=== PATIENT | male | born 1980 | race Hispanic/Latino ===

== ENCOUNTER → 2022-03-06 | Day surgery (SDC) | payer OTHER ==
[2022-03-05 11:10] LABS: BASOPHILS % 0.6 % (0.0-1.0); EOSINOPHILS # (AUTO) 0.6 (0.0-0.4); EOSINOPHILS % 9.1 % (0.0-6.0); HEMATOCRIT 39.8 % (38.2-49.6); HEMOGLOBIN 12.7 g/dL (14.0-18.0); LYMPHOCYTES # (AUTO) 2.7 (1.0-3.2); LYMPHOCYTES % 38.5 % (18.0-39.1); MEAN CORPUSCULAR HGB CONC 31.9 g/dL (31-35); MEAN CORPUSCULAR VOLUME 90.9 fL (81-99); MONOCYTES # (AUTO) 0.6 (0.2-0.8); MONOCYTES % 8.7 % (4.4-11.3); NEUTROPHILS % 43.1 % (38.7-80.0); PLATELET COUNT 194 x10e3/uL (140-360); RED BLOOD COUNT 4.38 x10e6/uL (4.3-5.7); RED CELL DISTRIBUTION WIDTH 11.8 % (11.7-14.4)
[~2022-03-06] MED LIST: ASCORBIC ACID500 MG PO; ASPIRIN81 MG PO; ATORVASTATIN CA20 MG PO; B&O 60MG R/S 60 MG SUPP PR ONE; DEXAMETHASONE SOD PHOS INJ 4 MG/ML SDV ONE; FLOMAX0.4 MG PO; FLUOXETINE HCL20 MG PO; IOHEXOL 300 MG/ML 30ML INFUS..BTL ONE; LAXATIVE PEG 3510 GM PO; LEVALBUTER0.63 MG/3 NEB; LEVOTHYROXINE50 MCG PO; LIDOCAINE HCL 2% LOCAL INJ 5 ML SDV VIAL INJ ONE; METOCLOPRAM5 MG/5 ML PO; NAPROXEN250 MG PO; ONDANSETRON HCL INJ 2MG/ML 2ML 2 MG/ML VIAL ONE; POVIDONE IODINE 0.05% 0.05 % ML PO ONE; PROBIOTIC & AC1 EACH PO; PROPOFOL IV EMULSION 10 MG/ML 20 ML VIAL ONE; SEVOFLURANE INHAL SOLN 250 ML PEN BTL ONE; SODIUM CHLORIDE 0.9% 50ML 50 ML ONE; SUMATRIPTAN SUC25 MG PO; TANDEM PLUS CA1 EACH PO; ULTRAM50 MG PO; VITAMIN D3250 MC1 PO; ZINC50 M3 PO
[2022-03-06 11:05] VITALS: BP 110/78
== END | disposition home or self-care (01) ==
LOC: OR 08:19
PROVIDERS: ATTEND Urology
DX: N21.0 Calculus in bladder (principal); N20.0 Calculus of kidney; N13.30 Unspecified hydronephrosis; Z46.6 Encounter for fitting and adjustment of urinary device; I69.354 Hemiplegia and hemiparesis following cerebral infarction affecting left non-dominant side; Z01.810 Encounter for preprocedural cardiovascular examination; Z01.812 Encounter for preprocedural laboratory examination; Z20.822 Contact with and (suspected) exposure to COVID-19; Z79.82 Long term (current) use of aspirin; Z79.899 Other long term (current) drug therapy; Z86.16 Personal history of COVID-19; Z87.01 Personal history of pneumonia (recurrent)
CPT/HCPCS: 36415; 52318; 52332; 74420; 85025; 87086; 88300; 93005; C1758; C2617; J0690; J1100; J2001; J2405; J2704; Q9967; U0002

== ENCOUNTER → 2022-04-29 | Day surgery (SDC) | payer OTHER ==
[~2022-04-29] MED LIST changes: +BUDESONIDE0.5 MG/2 M NEB; +EPHEDRINE SULFATE INJ 50 MG/ML VIAL ONE; +FENTANYL CITRATE/PF 100MCG/2 ML INJ ONE; -IOHEXOL 300 MG/ML 30ML INFUS..BTL ONE; +IOPAMIDOL 610MG/1ML 300 MG/ML VIAL IV ONE; +MIDAZOLAM HCL 2 MG/2 ML VIAL ONE; +PREDNISONE20 MG PO; -SODIUM CHLORIDE 0.9% 50ML 50 ML ONE
[2022-04-29 12:20] VITALS: BP 111/72
== END | disposition home or self-care (01) ==
LOC: OR 08:26
PROVIDERS: ATTEND Urology
DX: N20.0 Calculus of kidney (principal); N13.30 Unspecified hydronephrosis; N21.0 Calculus in bladder; E03.9 Hypothyroidism, unspecified; I69.354 Hemiplegia and hemiparesis following cerebral infarction affecting left non-dominant side; J45.909 Unspecified asthma, uncomplicated; F32.A Depression, unspecified; Z46.6 Encounter for fitting and adjustment of urinary device; Z01.812 Encounter for preprocedural laboratory examination; Z20.822 Contact with and (suspected) exposure to COVID-19; Z79.82 Long term (current) use of aspirin; Z79.899 Other long term (current) drug therapy; Z86.16 Personal history of COVID-19; Z87.01 Personal history of pneumonia (recurrent); Z86.2 Personal history of diseases of the blood and blood-forming organs and certain disorders involving the immune mechanism
CPT/HCPCS: 52317; 52356; 74420; 88300; C1758 ×2; C2617; J0690; J1100; J2001; J2250; J2405; J2704; J3010; Q9967; U0002

== ENCOUNTER 2022-04-30 14:36 | Inpatient (IN) | payer OTHER ==
[~2022-04-30] VITALS: Ht 167.6 cm; Wt 58.7 kg
[2022-04-30] VITALS (17 sets, daily range): BP systolic 77–100; BP diastolic 54–83
[~2022-04-30 14:36] MED LIST changes: -B&O 60MG R/S 60 MG SUPP PR ONE; -DEXAMETHASONE SOD PHOS INJ 4 MG/ML SDV ONE; -EPHEDRINE SULFATE INJ 50 MG/ML VIAL ONE; -FENTANYL CITRATE/PF 100MCG/2 ML INJ ONE; -IOPAMIDOL 610MG/1ML 300 MG/ML VIAL IV ONE; -LIDOCAINE HCL 2% LOCAL INJ 5 ML SDV VIAL INJ ONE; -MIDAZOLAM HCL 2 MG/2 ML VIAL ONE; -ONDANSETRON HCL INJ 2MG/ML 2ML 2 MG/ML VIAL ONE; -POVIDONE IODINE 0.05% 0.05 % ML PO ONE; -PROPOFOL IV EMULSION 10 MG/ML 20 ML VIAL ONE; -SEVOFLURANE INHAL SOLN 250 ML PEN BTL ONE
[2022-04-30] MEDS ORDERED: ONDANSETRON HCL INJ 2MG/ML 2ML 2 MG/ML VIAL IV STA (14:58)
[2022-04-30] MEDS ORDERED: SODIUM CHLORIDE 0.9% 1000ML 1,000 ML IV SCH ×2 (15:00→16:30)
[2022-04-30] MEDS ORDERED: Vancomycin IV 1 GM in SODIUM CHLORIDE 0.9% 250ML 250 ML IV STA (15:11)
[2022-04-30 15:31] LABS: BASOPHILS % 0.2 % (0.0-1.0); EOSINOPHILS # (AUTO) 0.4 (0.0-0.4); EOSINOPHILS % 1.9 % (0.0-6.0); HEMATOCRIT 34.7 % (38.2-49.6); HEMOGLOBIN 10.7 g/dL (14.0-18.0); LYMPHOCYTES # (AUTO) 1.2 (1.0-3.2); LYMPHOCYTES % 6.7 % (18.0-39.1); MEAN CORPUSCULAR HEMOGLOBIN 28.6 pg (28-32); MEAN CORPUSCULAR HGB CONC 30.8 g/dL (31-35); MEAN CORPUSCULAR VOLUME 92.8 fL (81-99); MONOCYTES # (AUTO) 1.5 (0.2-0.8); MONOCYTES % 8.2 % (4.4-11.3); NEUTROPHILS # (AUTO) 15.2 (2.1-6.9); NEUTROPHILS % 82.7 % (38.7-80.0); PLATELET COUNT 312 x10e3/uL (140-360); RED BLOOD COUNT 3.74 x10e6/uL (4.3-5.7); RED CELL DISTRIBUTION WIDTH 13.6 % (11.7-14.4)
[2022-04-30 15:48] LABS: ALBUMIN 3.5 g/dL (3.5-5.0); ALBUMIN/GLOBULIN RATIO 0.9 (0.8-2.0); ANION GAP 16.2 mmol/L (8-16); CALCIUM 9.4 mg/dL (8.4-10.2); CREATININE, SERUM 0.71 mg/dL (0.72-1.25); POTASSIUM 4.2 mmol/L (3.5-5.1)
[2022-04-30] MEDS ORDERED: SODIUM CHLORIDE 0.9% 1000ML 1,000 ML IV STA (16:17)
[2022-04-30] MEDS ORDERED: Morphine 2mg Syringe 2 MG/ML SYR IV PRN (16:30)
[2022-04-30 17:08] LABS: CLARITY,URINE TURBID (CLEAR); COLOR,URINE RED (YELLOW); KETONES,URINE NEGATIVE (NEGATIVE); LEUKOCYTE ESTERASE ,URINE SMALL (NEGATIVE); NITRITE,URINE NEGATIVE (NEGATIVE); PROTEIN,URINE DIPSTICK >=300 (NEGATIVE); URINE UROBILINOGEN 1 mg/dL (0.2 - 1)
[2022-04-30] MEDS ORDERED: LEVALBUTEROL HCL SOLN NEBU 0.63 MG/3 ML NEB IH PRN (17:15)
[2022-04-30 17:20] LABS: BACTERIA,URINE FEW /HPF; RBC,URINE >50 /HPF (0-5); WBC,URINE (MAN) 0-5 /HPF (0-5)
[2022-04-30 17:52] LABS: CREATINE KINASE MB 4.7 ng/mL (0-5.0)
[2022-04-30] MEDS: SODIUM CHLORIDE 0.9% 1000ML 1,000 ML IV SCH (18:37)
[2022-04-30] MEDS: ONDANSETRON HCL INJ 2MG/ML 2ML 2 MG/ML VIAL IV PRN (18:37)
[2022-04-30] MEDS: NOREPINEPHRINE 8 MG/D5W 250 ML 250 ML IV SCH (18:59)
[2022-04-30] MEDS ORDERED: MEROPENEM 1 GM in SODIUM CHLORIDE 0.9% 100 ML IV SCH (19:00)
[2022-04-30] MEDS ORDERED: DOCUSATE SODIUM 100 MG CAP PO PRN (20:30)
[2022-04-30] MEDS ORDERED: BENZONATATE 100 MG CAP PO PRN (20:30)
[2022-04-30] MEDS ORDERED: MELATONIN 5 MG TABLET PO PRN (20:30)
[2022-04-30] MEDS ORDERED: DIPHENHYDRAMINE HCL 25 MG CAP PO PRN (20:30)
[2022-04-30] MEDS ORDERED: POTASSIUM CHLORIDE 20 MEQ TAB CR PO PRN (20:30)
[2022-04-30] MEDS ORDERED: SIMETHICONE 80 MG CHEW PO PRN (20:30)
[2022-04-30] MEDS ORDERED: DEXTROSE 50% SYRINGE 50 ML IV PRN (20:30)
[2022-04-30] MEDS: MEROPENEM 1 GM in SODIUM CHLORIDE 0.9% 100 ML IV SCH (21:30)
[2022-05-01] VITALS (79 sets, daily range): BP systolic 81–113; BP diastolic 52–80
[2022-05-01] MEDS: SODIUM CHLORIDE 0.9% 1000ML 1,000 ML IV SCH ×3 (01:27→21:20)
[2022-05-01] MEDS: Vancomycin IV 1 GM in SODIUM CHLORIDE 0.9% 250ML 250 ML IV SCH ×2 (03:15→15:27)
[2022-05-01] MEDS: MEROPENEM 1 GM in SODIUM CHLORIDE 0.9% 100 ML IV SCH (05:36)
[2022-05-01] MEDS: LEVOTHYROXINE SODIUM 50 MCG TAB PO SCH (05:36)
[2022-05-01 06:01] LABS: BASOPHILS # (AUTO) 0.1 (0.0-0.1); BASOPHILS % 0.4 % (0.0-1.0); EOSINOPHILS # (AUTO) 0.6 (0.0-0.4); EOSINOPHILS % 2.4 % (0.0-6.0); HEMATOCRIT 33.7 % (38.2-49.6); HEMOGLOBIN 10.5 g/dL (14.0-18.0); LYMPHOCYTES # (AUTO) 0.8 (1.0-3.2); LYMPHOCYTES % 3.3 % (18.0-39.1); MEAN CORPUSCULAR HEMOGLOBIN 28.9 pg (28-32); MEAN CORPUSCULAR HGB CONC 31.2 g/dL (31-35); MEAN CORPUSCULAR VOLUME 92.8 fL (81-99); MONOCYTES # (AUTO) 2.1 (0.2-0.8); MONOCYTES % 8.6 % (4.4-11.3); NEUTROPHILS # (AUTO) 20.3 (2.1-6.9); NEUTROPHILS % 84.2 % (38.7-80.0); PLATELET COUNT 240 x10e3/uL (140-360); RED BLOOD COUNT 3.63 x10e6/uL (4.3-5.7); RED CELL DISTRIBUTION WIDTH 13.9 % (11.7-14.4)
[2022-05-01] MEDS: ACETAMINOPHEN 325 MG TAB PO PRN ×2 (06:04→19:26)
[2022-05-01 06:21] LABS: ANION GAP 11.7 mmol/L (8-16); CALCIUM 8.7 mg/dL (8.4-10.2); CREATININE, SERUM 0.69 mg/dL (0.72-1.25); MAGNESIUM 1.7 MG/DL (1.3-2.1); PHOSPHORUS 2.2 MG/DL (2.3-4.7); POTASSIUM 3.7 mmol/L (3.5-5.1)
[2022-05-01 07:24] LABS: CREATINE KINASE MB 1.7 ng/mL (0-5.0)
[2022-05-01] MEDS: PANTOPRAZOLE SOD 40 MG TABEC PO SCH (09:16)
[2022-05-01 09:25] LABS: BAND NEUTROPHILS % (MANUAL) 1 %; EOSINOPHILS % (MANUAL) 3 % (0-7); LYMPHOCYTES % (MANUAL) 6 % (19-48); MONOCYTES % (MANUAL) 7 % (3.4-9.0); NEUTROPHILS % (MANUAL) 83 % (40-74)
[2022-05-01 09:27] LABS: PLATELET ESTIMATE ADEQUATE; PLATELET MORPHOLOGY COMMENT NORMAL; RBC MORPHOLOGY COMMENT NORMAL
[2022-05-01] MEDS: PREDNISONE 20 MG TAB PO SCH (10:47)
[2022-05-01] MEDS: HEPARIN SOD (PORCINE) 5,000 UNIT/ML VIAL SC SCH ×2 (11:56→21:20)
[2022-05-01] MEDS ORDERED: MEROPENEM 500 MG VIAL ONE (14:08)
[2022-05-01 17:25] LABS: CREATINE KINASE MB 2.9 ng/mL (0-5.0)
[2022-05-01] MEDS: NOREPINEPHRINE 8 MG/D5W 250 ML 250 ML IV SCH (18:43)
[2022-05-02] VITALS (82 sets, daily range): BP systolic 89–111; BP diastolic 54–81
[2022-05-02] MEDS: SODIUM CHLORIDE 0.9% 1000ML 1,000 ML IV SCH ×3 (00:30→23:42)
[2022-05-02] MEDS: Vancomycin IV 1 GM in SODIUM CHLORIDE 0.9% 250ML 250 ML IV SCH ×2 (03:01→18:28)
[2022-05-02 05:04] LABS: BASOPHILS % 0.1 % (0.0-1.0); EOSINOPHILS # (AUTO) 1.6 (0.0-0.4); EOSINOPHILS % 11.6 % (0.0-6.0); HEMATOCRIT 29.1 % (38.2-49.6); LYMPHOCYTES # (AUTO) 0.8 (1.0-3.2); LYMPHOCYTES % 6.1 % (18.0-39.1); MEAN CORPUSCULAR HEMOGLOBIN 28.8 pg (28-32); MEAN CORPUSCULAR HGB CONC 30.9 g/dL (31-35); MEAN CORPUSCULAR VOLUME 93.3 fL (81-99); MONOCYTES # (AUTO) 1.4 (0.2-0.8); NEUTROPHILS # (AUTO) 9.9 (2.1-6.9); NEUTROPHILS % 71.7 % (38.7-80.0); PLATELET COUNT 181 x10e3/uL (140-360); RED BLOOD COUNT 3.12 x10e6/uL (4.3-5.7); RED CELL DISTRIBUTION WIDTH 14.1 % (11.7-14.4)
[2022-05-02] MEDS: LEVOTHYROXINE SODIUM 50 MCG TAB PO SCH (05:19)
[2022-05-02 05:23] LABS: ANION GAP 8.5 mmol/L (8-16); CALCIUM 8.6 mg/dL (8.4-10.2); CREATININE, SERUM 0.54 mg/dL (0.72-1.25); POTASSIUM 3.5 mmol/L (3.5-5.1)
[2022-05-02] MEDS: PANTOPRAZOLE SOD 40 MG TABEC PO SCH (08:40)
[2022-05-02] MEDS: PREDNISONE 20 MG TAB PO SCH (08:40)
[2022-05-02] MEDS: HEPARIN SOD (PORCINE) 5,000 UNIT/ML VIAL SC SCH ×2 (08:42→21:36)
[2022-05-02] MEDS: LIDOCAINE 4% PATCH TP PRN (12:00)
[2022-05-02] MEDS ORDERED: FLUCONAZOLE 200 MG/100 ML 100 ML IV SCH (14:00)
[2022-05-02] MEDS: LEVALBUTEROL HCL SOLN NEBU 1.25 MG/3 ML NEB INH SCH ×2 (14:50→19:30)
[2022-05-02] MEDS: NOREPINEPHRINE 8 MG/D5W 250 ML 250 ML IV SCH (19:00)
[2022-05-03] VITALS (25 sets, daily range): BP systolic 87–108; BP diastolic 59–85
[2022-05-03] MEDS: LEVALBUTEROL HCL SOLN NEBU 1.25 MG/3 ML NEB INH SCH ×4 (01:20→19:42)
[2022-05-03] MEDS: Vancomycin IV 1 GM in SODIUM CHLORIDE 0.9% 250ML 250 ML IV SCH ×2 (03:28→03:55)
[2022-05-03] MEDS: ONDANSETRON HCL INJ 2MG/ML 2ML 2 MG/ML VIAL IV PRN (05:08)
[2022-05-03] MEDS: LEVOTHYROXINE SODIUM 75 MCG TAB PO SCH (05:32)
[2022-05-03 05:52] LABS: BASOPHILS % 0.2 % (0.0-1.0); EOSINOPHILS # (AUTO) 1.1 (0.0-0.4); EOSINOPHILS % 9.7 % (0.0-6.0); HEMATOCRIT 28.7 % (38.2-49.6); HEMOGLOBIN 8.9 g/dL (14.0-18.0); LYMPHOCYTES # (AUTO) 1.2 (1.0-3.2); MEAN CORPUSCULAR HEMOGLOBIN 28.9 pg (28-32); MEAN CORPUSCULAR VOLUME 93.2 fL (81-99); MONOCYTES # (AUTO) 0.9 (0.2-0.8); MONOCYTES % 7.6 % (4.4-11.3); NEUTROPHILS # (AUTO) 8.3 (2.1-6.9); NEUTROPHILS % 72.1 % (38.7-80.0); PLATELET COUNT 200 x10e3/uL (140-360); RED BLOOD COUNT 3.08 x10e6/uL (4.3-5.7); RED CELL DISTRIBUTION WIDTH 13.8 % (11.7-14.4)
[2022-05-03] MEDS ORDERED: METOCLOPRAMIDE HCL 10 MG/2ML VIAL IV PRN (07:00)
[2022-05-03] MEDS: ALBUTEROL/IPRATROPIUM 3 ML NEB NEB PRN ×2 (07:30→13:30)
[2022-05-03 07:57] LABS: ANION GAP 12.2 mmol/L (8-16); CALCIUM 8.2 mg/dL (8.4-10.2); CREATININE, SERUM 0.58 mg/dL (0.72-1.25); POTASSIUM 3.2 mmol/L (3.5-5.1)
[2022-05-03] MEDS: HEPARIN SOD (PORCINE) 5,000 UNIT/ML VIAL SC SCH ×2 (08:30→21:43)
[2022-05-03] MEDS: PREDNISONE 20 MG TAB PO SCH (08:30)
[2022-05-03] MEDS: PANTOPRAZOLE SOD 40 MG TABEC PO SCH (08:30)
[2022-05-03] MEDS: ACETAMINOPHEN 325 MG TAB PO PRN (10:01)
[2022-05-03] MEDS: LIDOCAINE 4% PATCH TP PRN (10:01)
[2022-05-03 11:13] LABS: ABG HCO3 33 mmol/L (22-26); ABG PCO2 47 mmHg (35-45); ABG PH 7.46 (7.35-7.45); ABG PO2 126 mmHg (80-105); ABG TCO2 35
[2022-05-03] MEDS ORDERED: FLUOXETINE HCL 20 MG CAP PO ONE (13:30)
[2022-05-03] MEDS: SODIUM CHLORIDE 0.9% 1000ML 1,000 ML IV SCH (21:41)
[2022-05-04] VITALS (8 sets, daily range): BP systolic 96–104; BP diastolic 66–70
[2022-05-04] MEDS: LEVALBUTEROL HCL SOLN NEBU 1.25 MG/3 ML NEB INH SCH ×4 (00:50→19:15)
[2022-05-04] MEDS: Vancomycin IV 1 GM in SODIUM CHLORIDE 0.9% 250ML 250 ML IV SCH (03:00)
[2022-05-04] MEDS: LEVOTHYROXINE SODIUM 75 MCG TAB PO SCH (06:48)
[2022-05-04 06:56] LABS: BASOPHILS % 0.2 % (0.0-1.0); EOSINOPHILS # (AUTO) 1.3 (0.0-0.4); EOSINOPHILS % 13.9 % (0.0-6.0); HEMATOCRIT 29.8 % (38.2-49.6); HEMOGLOBIN 9.1 g/dL (14.0-18.0); LYMPHOCYTES # (AUTO) 1.2 (1.0-3.2); LYMPHOCYTES % 12.1 % (18.0-39.1); MEAN CORPUSCULAR HEMOGLOBIN 28.6 pg (28-32); MEAN CORPUSCULAR HGB CONC 30.5 g/dL (31-35); MEAN CORPUSCULAR VOLUME 93.7 fL (81-99); MONOCYTES # (AUTO) 1.2 (0.2-0.8); MONOCYTES % 12.3 % (4.4-11.3); NEUTROPHILS # (AUTO) 5.9 (2.1-6.9); NEUTROPHILS % 61.1 % (38.7-80.0); PLATELET COUNT 226 x10e3/uL (140-360); RED BLOOD COUNT 3.18 x10e6/uL (4.3-5.7)
[2022-05-04 07:10] LABS: ANION GAP 12.5 mmol/L (8-16); CALCIUM 8.6 mg/dL (8.4-10.2); CREATININE, SERUM 0.61 mg/dL (0.72-1.25); POTASSIUM 3.5 mmol/L (3.5-5.1)
[2022-05-04] MEDS ORDERED: FLUCONAZOLE 100 MG TAB PO SCH (09:00)
[2022-05-04] MEDS: PANTOPRAZOLE SOD 40 MG TABEC PO SCH (09:13)
[2022-05-04] MEDS: PREDNISONE 10 MG TAB PO SCH (09:14)
[2022-05-04] MEDS: FLUOXETINE HCL 20 MG CAP PO SCH (09:19)
[2022-05-04] MEDS: HEPARIN SOD (PORCINE) 5,000 UNIT/ML VIAL SC SCH ×2 (09:21→21:09)
[2022-05-04] MEDS ORDERED: ALBUTEROL/IPRATROPIUM 3 ML NEB NEB PRN (09:45)
[2022-05-04] MEDS ORDERED: MICAFUNGIN SODIUM 100 ML IV SCH (13:00)
[2022-05-04] MEDS: Vancomycin IV 1.25 GM in SODIUM CHLORIDE 0.9% 250ML 250 ML IV SCH (13:00)
[2022-05-04] MEDS: GUAIFENESIN/CODEINE 5 ML LIQD PO PRN (16:36)
[2022-05-04] MEDS: SODIUM CHLORIDE 0.9% 1000ML 1,000 ML IV SCH (18:21)
[2022-05-04] MEDS: LIDOCAINE 4% PATCH TP PRN (21:35)
[2022-05-04] MEDS: ACETAMINOPHEN 325 MG TAB PO PRN (23:23)
[2022-05-05] VITALS (8 sets, daily range): BP systolic 93–104; BP diastolic 55–74
[2022-05-05] MEDS: Vancomycin IV 1.25 GM in SODIUM CHLORIDE 0.9% 250ML 250 ML IV SCH ×3 (01:48→18:08)
[2022-05-05] MEDS: LEVOTHYROXINE SODIUM 75 MCG TAB PO SCH (05:22)
[2022-05-05] MEDS: LEVALBUTEROL HCL SOLN NEBU 1.25 MG/3 ML NEB INH SCH ×5 (07:10→23:00)
[2022-05-05] MEDS: PANTOPRAZOLE SOD 40 MG TABEC PO SCH (08:18)
[2022-05-05] MEDS: PREDNISONE 10 MG TAB PO SCH (11:00)
[2022-05-05] MEDS: FLUOXETINE HCL 20 MG CAP PO SCH (11:00)
[2022-05-05] MEDS: HEPARIN SOD (PORCINE) 5,000 UNIT/ML VIAL SC SCH ×2 (11:02→22:33)
[2022-05-05] MEDS: SODIUM CHLORIDE 0.9% 1000ML 1,000 ML IV SCH (11:40)
[2022-05-05] MEDS ORDERED: MICAFUNGIN SODIUM 100 ML IV SCH (16:00)
[2022-05-05] MEDS: MICAFUNGIN SODIUM 100 ML IV SCH (16:25)
[2022-05-05] MEDS: GUAIFENESIN/CODEINE 5 ML LIQD PO PRN (23:30)
[2022-05-06] VITALS (8 sets, daily range): BP systolic 94–101; BP diastolic 63–73
[2022-05-06] MEDS: LEVOTHYROXINE SODIUM 75 MCG TAB PO SCH (06:06)
[2022-05-06] MEDS: Vancomycin IV 1.25 GM in SODIUM CHLORIDE 0.9% 250ML 250 ML IV SCH (06:37)
[2022-05-06] MEDS: LEVALBUTEROL HCL SOLN NEBU 1.25 MG/3 ML NEB INH SCH ×3 (07:00→19:20)
[2022-05-06] MEDS: PANTOPRAZOLE SOD 40 MG TABEC PO SCH (08:33)
[2022-05-06] MEDS: FLUOXETINE HCL 20 MG CAP PO SCH (08:40)
[2022-05-06] MEDS: PREDNISONE 10 MG TAB PO SCH (08:40)
[2022-05-06] MEDS: SODIUM CHLORIDE 0.9% 1000ML 1,000 ML IV SCH (08:40)
[2022-05-06] MEDS: HEPARIN SOD (PORCINE) 5,000 UNIT/ML VIAL SC SCH ×2 (09:16→21:00)
[2022-05-06] MEDS ORDERED: ONDANSETRON HCL 4 MG ORAL DISINTEGRATING TAB PO PRN (14:30)
[2022-05-06] MEDS: MICAFUNGIN SODIUM 100 ML IV SCH (17:24)
[2022-05-07] VITALS: BP 102/68
[2022-05-07] MEDS: LEVALBUTEROL HCL SOLN NEBU 1.25 MG/3 ML NEB INH SCH ×3 (01:00→13:28)
[2022-05-07] MEDS: SODIUM CHLORIDE 0.9% 1000ML 1,000 ML IV SCH (03:40)
[2022-05-07 04:00] VITALS: BP 98/65
[2022-05-07] MEDS: LEVOTHYROXINE SODIUM 75 MCG TAB PO SCH (06:41)
[2022-05-07] MEDS: FLUOXETINE HCL 20 MG CAP PO SCH (08:16)
[2022-05-07] MEDS: PREDNISONE 10 MG TAB PO SCH (08:16)
[2022-05-07] MEDS: PANTOPRAZOLE SOD 40 MG TABEC PO SCH (08:16)
[2022-05-07 08:18] VITALS: BP 101/72
[2022-05-07] MEDS: HEPARIN SOD (PORCINE) 5,000 UNIT/ML VIAL SC SCH (08:19)
[2022-05-07 08:34] VITALS: BP 101/72
[2022-05-07] MEDS ORDERED: SYNTHROID75 MCG PO (11:32)
[2022-05-07] MEDS ORDERED: FLUCONAZOLE200 MG PO (11:32)
[2022-05-07 11:55] VITALS: BP 96/70
[2022-05-07] MEDS ORDERED: METOCLOPRAMIDE HCL 10 MG TAB PO PRN (12:30)
[2022-05-07 16:13] VITALS: BP 95/68
[2022-05-07] MEDS: MICAFUNGIN SODIUM 100 ML IV SCH (16:38)
[2022-05-08] MEDS ORDERED: ASPIRIN 81 MG ENTERIC COATED PO SCH (09:00)
== END 2022-05-07 18:00 | disposition home or self-care (01) | DRG 871 ==
LOC: ER 15:01 → ERHOLD 16:27 → ICU 20:23 → MED/SURG2 05-03 16:55
PROVIDERS: ADMIT Internal Medicine; ATTEND Internal Medicine
PROC: 02HV33Z Insertion of Infusion Device into Superior Vena Cava, Percutaneous Approach (ICD-10-PCS; principal; 2022-04-30)
PROC: 3E043XZ Introduction of Vasopressor into Central Vein, Percutaneous Approach (ICD-10-PCS; 2022-04-30)
DX: B37.7 Candidal sepsis (principal); R65.21 Severe sepsis with septic shock; I50.22 Chronic systolic (congestive) heart failure; N13.6 Pyonephrosis; J96.12 Chronic respiratory failure with hypercapnia; E44.1 Mild protein-calorie malnutrition; B37.49 Other urogenital candidiasis; D63.8 Anemia in other chronic diseases classified elsewhere; I11.0 Hypertensive heart disease with heart failure; Z99.81 Dependence on supplemental oxygen; J84.10 Pulmonary fibrosis, unspecified; F41.9 Anxiety disorder, unspecified; U09.9 Post COVID-19 condition, unspecified; E03.9 Hypothyroidism, unspecified; J98.4 Other disorders of lung; Z79.52 Long term (current) use of systemic steroids; Z79.82 Long term (current) use of aspirin; Z68.20 Body mass index [BMI] 20.0-20.9, adult
CPT/HCPCS: 36415; 36569; 36600; 71045; 71046; 71260; 74018; 74177; 80048; 80053; 80061; 80202; 81001; 82550; 82553; 82805; 83605; 83735; 84100; 84443; 84484; 85025; 85730; 87040; 87071; 87086; 87205; 93005; 93306; 94640; 94799; 97139; 99251; 99284; J1450; J1644; J2185; J2248; J2405; J2543; J2765; J3370; J7030; J7050; J7512

== ENCOUNTER → 2022-05-23 | Outpatient (CLI) | payer OTHER ==
[~2022-05-23] MED LIST changes: +FLUCONAZOLE200 MG PO; +SYNTHROID75 MCG PO
== END ==
LOC: RAD 14:09
PROVIDERS: ATTEND Urology
DX: N20.0 Calculus of kidney (principal); N21.0 Calculus in bladder; T19.1XXA Foreign body in bladder, initial encounter
CPT/HCPCS: 74018

== ENCOUNTER → 2022-07-02 | Day surgery (SDC) | payer OTHER ==
[~2022-07-02] MED LIST changes: +B&O 60MG R/S 60 MG SUPP PR ONE; +DEXAMETHASONE SOD PHOS INJ 4 MG/ML SDV ONE; +EPHEDRINE SULFATE INJ 50 MG/ML VIAL ONE; +FENTANYL CITRATE/PF 100MCG/2 ML INJ ONE; +IOPAMIDOL 610MG/1ML 300 MG/ML VIAL IV ONE; +LIDOCAINE HCL 2% LOCAL INJ 5 ML SDV VIAL INJ ONE; +MIDAZOLAM HCL 2 MG/2 ML VIAL ONE; +ONDANSETRON HCL INJ 2MG/ML 2ML 2 MG/ML VIAL ONE; +POVIDONE IODINE 0.05% 0.05 % ML PO ONE; +PROPOFOL IV EMULSION 10 MG/ML 20 ML VIAL ONE; +SEVOFLURANE INHAL SOLN 250 ML PEN BTL ONE; +TRAZODONE HCL50 MG PO
[2022-07-02 10:45] VITALS: BP 115/72
== END | disposition home or self-care (01) ==
LOC: OR 07:54
PROVIDERS: ATTEND Urology
DX: N20.0 Calculus of kidney (principal); N13.30 Unspecified hydronephrosis; Z46.6 Encounter for fitting and adjustment of urinary device; U09.9 Post COVID-19 condition, unspecified; J96.90 Respiratory failure, unspecified, unspecified whether with hypoxia or hypercapnia; G47.33 Obstructive sleep apnea (adult) (pediatric); E03.9 Hypothyroidism, unspecified; F32.A Depression, unspecified; E78.5 Hyperlipidemia, unspecified; Z01.810 Encounter for preprocedural cardiovascular examination; Z01.812 Encounter for preprocedural laboratory examination; Z20.822 Contact with and (suspected) exposure to COVID-19; Z79.82 Long term (current) use of aspirin; Z79.899 Other long term (current) drug therapy; Z99.81 Dependence on supplemental oxygen; Z86.73 Personal history of transient ischemic attack (TIA), and cerebral infarction without residual deficits
CPT/HCPCS: 0223U; 36415; 52351; 74420; 93005; C1758; J0690; J1100; J2001; J2250; J2405; J2704; J3010; Q9967